=== PATIENT | male | born 1965 | race Caucasian/White ===

== ENCOUNTER → 2017-09-12 | Outpatient (CLI) | payer BC ==
[~2017-09-12] MED LIST: ACET325T14 PO; AMIO200T42 PO; APIX5TAB PO; ASPI-621 PO; ATOR40TA78 PO; BENA1TAB9 PO; CEFA2PLA9 IV; CYCL-259 PO; DIGO125T PO; FAMO20TA7 PO; GABA-826 PO; HYDR-3240 PO; LISI5TAB7 PO; MAGN400T26 PO; METO-93 PO; RIFA300C3 PO; TAMS-11 PO; TEMA30CA6 PO; TRAM50TA2 PO
== END | disposition home or self-care (01) ==
LOC: CVU 09:05
PROVIDERS: ATTEND Internal Medicine Cardiovascular Disease
DX: I71.2 Thoracic aortic aneurysm, without rupture (principal)
CPT/HCPCS: 93306; 93978

== ENCOUNTER → 2018-09-15 | Outpatient (CLI) | payer BC | END | disposition home or self-care (01) | LOC: CFH 07:05 | PROVIDERS: ATTEND Internal Medicine Cardiovascular Disease | DX: I08.0 Rheumatic disorders of both mitral and aortic valves (principal); I10 Essential (primary) hypertension; E78.5 Hyperlipidemia, unspecified; Z86.73 Personal history of transient ischemic attack (TIA), and cerebral infarction without residual deficits | CPT/HCPCS: 93306 ==

== ENCOUNTER → 2019-11-14 | Outpatient (CLI) | payer BC, MEDICAID ==
[~2019-11-14] MED LIST changes: -ASPI-621 PO; +ASPI81TA45 PO
== END | disposition home or self-care (01) ==
LOC: CVU 15:23
PROVIDERS: ATTEND Internal Medicine Cardiovascular Disease
DX: I35.1 Nonrheumatic aortic (valve) insufficiency (principal); I71.9 Aortic aneurysm of unspecified site, without rupture; I48.0 Paroxysmal atrial fibrillation
CPT/HCPCS: 93306; 93356

== ENCOUNTER → 2020-04-21 | Outpatient (CLI) | payer BC, MEDICAID ==
[~2020-04-21] MED LIST changes: -DIGO125T PO; +DIGO125T85 PO
== END | disposition home or self-care (01) ==
LOC: CFH 15:51
PROVIDERS: ATTEND Internal Medicine Cardiovascular Disease
DX: I11.9 Hypertensive heart disease without heart failure (principal); I25.5 Ischemic cardiomyopathy
CPT/HCPCS: 93306

== ENCOUNTER 2021-05-20 02:00 | Emergency (ER) | payer BC, OTHER ==
[~2021-05-20] VITALS: Ht 172.7 cm; Wt 83.0 kg
[~2021-05-20 02:00] MED LIST changes: -CYCL-259 PO; +CYCL10TA2 PO; +HYDR-2214 PO; -HYDR-3240 PO
[2021-05-20] MEDS ORDERED: DILTIAZEM 5 MG/ML, 5ML IVPush ONE (02:30)
[2021-05-20] MEDS ORDERED: DILTIAZEM 5 MG/ML, 5ML ONE (02:32)
[2021-05-20 02:42] LABS: BASOPHILS % (AUTO) 1 % (0-1); EOSINOPHILS % (AUTO) 2 % (1-7); LYMPHOCYTES % (AUTO) 34 % (22-44); MEAN CORPUSCULAR HEMOGLOBIN 32.1 pg (27.5-34.5); MEAN CORPUSCULAR HGB CONC 33.2 g/dL (33.2-36.2); MONOCYTES % (AUTO) 6 % (2-9); NEUTROPHILS % (AUTO) 57 % (42-75); PLATELET COUNT 183 x10^3/uL (130-400); RED BLOOD COUNT 4.17 x10^6/uL (4.38-5.82); RED CELL DISTRIBUTION WIDTH 14.2 % (9.4-14.8)
[2021-05-20 02:54] LABS: ALANINE AMINOTRANSFERASE 42 U/L (12-78); ALBUMIN 3.2 g/dL (3.4-5.0); ANION GAP 6 mmol/L (5-15); CALCIUM 8.7 mg/dL (8.5-10.1); CHLORIDE 107 mmol/L (98-107); CREATININE 1.16 mg/dL (0.7-1.3)
[2021-05-20 03:05] LABS: ALKALINE PHOSPHATASE 39 U/L (45-117); BILIRUBIN,TOTAL 0.6 mg/dL (0.2-1.0); TOTAL PROTEIN 6.8 g/dL (6.4-8.2); TROPONIN I < 0.015 ng/mL (0.000-0.045)
--- NOTE | 2021-05-20 03:38 | NUR ---
Pt resting comfortably at this time, provided with pillow and blanket. Pt HR remains irregular, rate in upper 90's to upper 110's. MD aware. pt denies any chest pain, lightheadedness, sob at this time.
[2021-05-20] MEDS ORDERED: PROPOFOL 10 MG/ML, 20ML ONE (05:10)
--- NOTE | 2021-05-20 05:19 | NUR ---
Set up for cardioversion at bedside. Pt on defib pads, continous night monitor. Suction at bedside w/ BVM. Pt vitals updated. Patent IV access assessed.
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
[2021-05-20 05:40] VITALS: BP 119/91
--- NOTE | 2021-05-20 06:43 | NUR ---
Patient/Caregiver given discharge instructions and they have confirmed that they understand the instructions. Patient ambulatory with steady gait. NAD, all questions answered appropriately, denies additional needs at this time. No personal belongings left in room after discharge.
== END 2021-05-20 06:45 | disposition home or self-care (01) ==
LOC: ED 03:59
DX: I48.92 Unspecified atrial flutter (principal); R00.2 Palpitations; I45.19 Other right bundle-branch block; I10 Essential (primary) hypertension; I48.0 Paroxysmal atrial fibrillation; I25.2 Old myocardial infarction; E78.5 Hyperlipidemia, unspecified; Z87.891 Personal history of nicotine dependence
CPT/HCPCS: 36415; 71045; 80053; 83735; 84443; 84484; 85025; 92960; 93005; 96374